=== PATIENT | female | born 1980 | race Hispanic/Latino ===

== ENCOUNTER 2021-01-04 01:50 | Inpatient (IN) | payer BC ==
[~2021-01-04] VITALS: Ht 162.6 cm; Wt 72.1 kg
[~2021-01-04 01:50] MED LIST: VANCOMYCIN 1G/250ML KIT 250 ML IV SCH
[2021-01-04] MEDS ORDERED: LACTATED RINGERS 1000ML 1,000 ML IV ONE (02:00)
[2021-01-04] MEDS ORDERED: ACETAMINOPHEN 500 MG TABLET PO ONE (02:00)
[2021-01-04] MEDS ORDERED: ONDANSETRON 4MG INJ ONE (02:02)
[2021-01-04] MEDS ORDERED: ACETAMINOPHEN 500 MG TABLET ONE (02:02)
[2021-01-04] MEDS: ONDANSETRON 4MG INJ IVP ONE ×2 (02:07→02:14)
[2021-01-04 02:11] LABS: BASOPHILS % (AUTO) 0.2 % (0.0-5.0); EOSINOPHILS % (AUTO) 0.1 % (0.0-8.0); HEMATOCRIT 30.3 % (36-48); LYMPHOCYTES % (AUTO) 3.5 % (21.0-51.0); MEAN CORPUSCULAR HEMOGLOBIN 27.7 pg (27.0-33.0); MEAN CORPUSCULAR HGB CONC 32.7 g/dL (32.0-36.0); MEAN CORPUSCULAR VOLUME 84.6 fL (79-99); MONOCYTES % (AUTO) 5.1 % (3.0-13.0); NEUTROPHILS % (AUTO) 90.7 % (40.0-77.0); PLATELET COUNT (AUTO) 341 K/uL (130-400); RED BLOOD CELL COUNT(AUTO) 3.58 MIL/uL (4.00-5.50); RED CELL DISTRIBUTION WIDTH 14.1 % (11.0-15.5); WHITE BLOOD COUNT (AUTO) 18.3 K/uL (4.8-10.8)
[2021-01-04 02:31] LABS: POTASSIUM 3.9 mmol/L (3.5-5.1)
[2021-01-04] MEDS ORDERED: MORPHINE 4 MG SYG ONE (02:34)
[2021-01-04 02:35] LABS: ALBUMIN 3.5 g/dL (3.5-5.0); BILIRUBIN,TOTAL 0.5 mg/dL (0.2-1.0); TOTAL PROTEIN, SERUM 7.6 g/dL (6.0-8.3)
[2021-01-04 02:44] LABS: MAGNESIUM 1.9 mg/dL (1.80-2.40)
[2021-01-04] MEDS ORDERED: MORPHINE 4 MG SYG IV ONE (03:00)
[2021-01-04 03:02] LABS: APPEARANCE,URINE CLEAR (CLEAR); BILIRUBIN,URINE Negative (NEGATIVE); COLOR,URINE Yellow (YELLOW); GLUCOSE, URINE (UA) Negative (NEGATIVE); KETONES,URINE Negative (NEGATIVE); LEUKOCYTE ESTERASE ,URINE Moderate (NEGATIVE); NITRATE,URINE Positive (NEGATIVE); OCCULT BLOOD,URINE Small (NEGATIVE); PROTEIN,URINE Negative (NEGATIVE); UROBILINOGEN,URINE 0.2 mg/dL (0.2-1.0)
[2021-01-04 03:03] LABS: CREATININE 0.7 mg/dL (0.5-1.5)
[2021-01-04 03:09] LABS: BACTERIA,URINE Many /HPF (None Seen); RBC,URINE 0-1 /HPF (0-1); SQUAMOUS EPITHELIAL CELL,UR 0-2 /HPF (0-2)
[2021-01-04] MEDS ORDERED: CEFTRIAXONE 1G VIAL IVP ONE (03:30)
[2021-01-04] MEDS ORDERED: IOHEXOL 350 MG/ML 100ML INFUS..BTL IV ONE (03:37)
[2021-01-04] MEDS ORDERED: VANCOMYCIN PROTOCOL PER PHARMACY IV SCH (06:00)
[2021-01-04] MEDS ORDERED: VANCOMYCIN 1G/250ML KIT 250 ML IV ONE (06:31)
[2021-01-04] MEDS: VANCOMYCIN 1G/250ML KIT 250 ML IV SCH ×2 (08:31→22:00)
[2021-01-04] MEDS ORDERED: MORPHINE 4 MG SYG IV PRN (12:30)
[2021-01-04] MEDS ORDERED: MORPHINE 4 MG SYG IM PRN (12:30)
[2021-01-04] MEDS ORDERED: ONDANSETRON 4MG INJ IVP PRN (12:30)
[2021-01-04] MEDS ORDERED: FERR-72 PO (13:37)
[2021-01-04] MEDS ORDERED: MULT-1367 PO (13:37)
[2021-01-04] MEDS ORDERED: DOCU-116 PO (13:37)
[2021-01-04] MEDS ORDERED: IBUP-2784 PO (13:37)
[2021-01-04] MEDS ORDERED: ACET325T51 PO (13:37)
[2021-01-04] MEDS: LACTATED RINGERS 1000ML 1,000 ML IV SCH ×2 (13:48→21:00)
[2021-01-04 13:56] VITALS: BP 126/68
[2021-01-04 16:01] VITALS: BP 129/74
[2021-01-04] MEDS: PANTOPRAZOLE 40 MG/VIAL IVP SCH (16:03)
[2021-01-04 20:45] VITALS: BP 125/78
[2021-01-04 23:50] VITALS: BP_SYST 105; BP_SYST 119; BP_DIAS 67; BP_DIAS 75
[2021-01-05] MEDS: LACTATED RINGERS 1000ML 1,000 ML IV SCH ×4 (03:27→18:06)
[2021-01-05 03:55] VITALS: BP 119/77
[2021-01-05 05:12] LABS: EOSINOPHILS % (MANUAL) 2 % (1-6); LYMPHOCYTES % (MANUAL) 8 % (22-44); MAN.DIFF COMMENT-IMPRESSION MANUAL DIFFERENTIAL; MONOCYTES % (MANUAL) 8 % (2-9); SEGMENTED NEUTROPHILS % 82 % (40-70)
[2021-01-05 05:16] LABS: HEMATOCRIT 27.6 % (36-48); MEAN CORPUSCULAR HEMOGLOBIN 26.8 pg (27.0-33.0); MEAN CORPUSCULAR HGB CONC 30.8 g/dL (32.0-36.0); MEAN CORPUSCULAR VOLUME 87.1 fL (79-99); PLATELET COUNT (AUTO) 359 K/uL (130-400); RED BLOOD CELL COUNT(AUTO) 3.17 MIL/uL (4.00-5.50); RED CELL DISTRIBUTION WIDTH 14.4 % (11.0-15.5); WHITE BLOOD COUNT (AUTO) 8.9 K/uL (4.8-10.8)
[2021-01-05 07:31] VITALS: BP 137/77
[2021-01-05] MEDS ORDERED: ZOSYN 3.375GM +NS 50ML IV SCH (10:00)
[2021-01-05] MEDS: VANCOMYCIN 1G/250ML KIT 250 ML IV SCH (10:00)
[2021-01-05 11:04] VITALS: BP 118/70
[2021-01-05] MEDS: ZOSYN 3.375GM+NS 50ML 50 ML IV SCH ×2 (12:24→20:36)
[2021-01-05] MEDS: PANTOPRAZOLE 40 MG/VIAL IVP SCH (14:54)
[2021-01-05 17:22] VITALS: BP 128/73
[2021-01-05 19:38] VITALS: BP 139/80
[2021-01-05] MEDS: VANCOMYCIN 1.5GM/NS 250ML IV SCH ×2 (21:52)
[2021-01-05 23:02] VITALS: BP 124/73
[2021-01-06] MEDS: LACTATED RINGERS 1000ML 1,000 ML IV SCH ×3 (01:31→18:00)
[2021-01-06 03:12] VITALS: BP 123/76
[2021-01-06] MEDS: ZOSYN 3.375GM+NS 50ML 50 ML IV SCH ×3 (03:53→20:14)
[2021-01-06 07:21] VITALS: BP 130/75
[2021-01-06] MEDS ORDERED: PHARMACY COMMUNICATION MISC SCH (09:30)
[2021-01-06] MEDS ORDERED: METHYLENE BLUE 5 MG/ML AMP IJ SCH (09:30)
[2021-01-06] MEDS: VANCOMYCIN 1.5GM/NS 250ML IV SCH ×4 (09:55→22:08)
[2021-01-06] MEDS ORDERED: WATER IJ SCH ×2 (10:30)
[2021-01-06] MEDS ORDERED: DEXTROSE 5% IJ SCH ×2 (10:30)
[2021-01-06] MEDS ORDERED: METHYLENE BLUE IJ SCH ×2 (10:30)
[2021-01-06 10:48] LABS: BASOPHILS % (AUTO) 0.4 % (0.0-5.0); EOSINOPHILS % (AUTO) 2.6 % (0.0-8.0); LYMPHOCYTES % (AUTO) 20.3 % (21.0-51.0); MEAN CORPUSCULAR HEMOGLOBIN 26.9 pg (27.0-33.0); MEAN CORPUSCULAR HGB CONC 31.1 g/dL (32.0-36.0); MEAN CORPUSCULAR VOLUME 86.5 fL (79-99); MONOCYTES % (AUTO) 8.3 % (3.0-13.0); NEUTROPHILS % (AUTO) 68.2 % (40.0-77.0); PLATELET COUNT (AUTO) 388 K/uL (130-400); RED BLOOD CELL COUNT(AUTO) 3.12 MIL/uL (4.00-5.50); RED CELL DISTRIBUTION WIDTH 14.2 % (11.0-15.5)
[2021-01-06 11:03] VITALS: BP 117/69
[2021-01-06] MEDS ORDERED: COMPOUND IV REFRIGERATED 1 EACH IVSOLN MISC PRN (11:30)
[2021-01-06] MEDS: PANTOPRAZOLE 40 MG/VIAL IVP SCH (15:57)
[2021-01-06 16:30] VITALS: BP 123/88
[2021-01-06 19:46] VITALS: BP 114/73
[2021-01-06 23:23] VITALS: BP 129/81
[2021-01-07] MEDS: LACTATED RINGERS 1000ML 1,000 ML IV SCH ×3 (00:30→11:37)
[2021-01-07 03:18] VITALS: BP 119/75
[2021-01-07] MEDS: ZOSYN 3.375GM+NS 50ML 50 ML IV SCH ×2 (03:57→13:40)
[2021-01-07 06:04] LABS: BASOPHILS % (AUTO) 0.7 % (0.0-5.0); EOSINOPHILS % (AUTO) 4.2 % (0.0-8.0); LYMPHOCYTES % (AUTO) 30.9 % (21.0-51.0); MEAN CORPUSCULAR HEMOGLOBIN 26.9 pg (27.0-33.0); MEAN CORPUSCULAR HGB CONC 31.5 g/dL (32.0-36.0); MEAN CORPUSCULAR VOLUME 85.4 fL (79-99); MONOCYTES % (AUTO) 8.6 % (3.0-13.0); NEUTROPHILS % (AUTO) 55.4 % (40.0-77.0); PLATELET COUNT (AUTO) 363 K/uL (130-400); RED BLOOD CELL COUNT(AUTO) 3.16 MIL/uL (4.00-5.50); RED CELL DISTRIBUTION WIDTH 13.8 % (11.0-15.5); WHITE BLOOD COUNT (AUTO) 4.3 K/uL (4.8-10.8)
[2021-01-07 07:20] VITALS: BP 121/84
[2021-01-07] MEDS ORDERED: IBUPROFEN 800 MG TAB PO PRN (09:00)
[2021-01-07] MEDS: VANCOMYCIN 1.5GM/NS 250ML IV SCH ×2 (09:12)
[2021-01-07 11:29] VITALS: BP 122/82
[2021-01-07] MEDS: PANTOPRAZOLE 40 MG/VIAL IVP SCH (13:38)
[2021-01-07 16:39] VITALS: BP 141/75
[2021-01-07] MEDS ORDERED: CEPH250C2 PO (17:01)
[2021-01-07] MEDS ORDERED: [UNRECOGNIZED DRUG - CODE] PO (17:03)
== END 2021-01-07 18:10 | disposition home or self-care (01) | DRG 872 ==
LOC: EDH 01:50 → WSH 10:50
PROVIDERS: ADMIT Obstetrics & Gynecology; ATTEND Obstetrics & Gynecology
DX: A41.9 Sepsis, unspecified organism (principal); N13.6 Pyonephrosis; Z20.822 Contact with and (suspected) exposure to COVID-19; B96.20 Unspecified Escherichia coli [E. coli] as the cause of diseases classified elsewhere; Z90.710 Acquired absence of both cervix and uterus; Y92.89 Other specified places as the place of occurrence of the external cause; N73.9 Female pelvic inflammatory disease, unspecified
CPT/HCPCS: 36415; 74177; 76856; 80053; 80202; 81001; 83605; 83735; 85025; 87040; 87077; 87088; 87186; 87635; C9113; C9803; G0378; J0696; J2270; J2405; J2543; J3370; J7050; J7060; J7120; Q9967; Q9968